=== PATIENT | female | born 1990 | race Caucasian/White ===

== ENCOUNTER 2017-03-05 04:19 | Emergency (ER) | payer OTHER ==
--- NOTE | ~2017-03-05 | EKG ---
PATIENT: ANA CROWELL UNIT #: [id number] Ventricular Rate: 86 BPM Atrial Rate: 86 BPM P-R Interval: 140 ms QRS Duration: 90 ms Q-T Interval: 374 ms QTC Calculation(Bezet): 447 ms P Adamant: 82 degrees Calculated R Adamant: 87 degrees Calculated T Adamant: 63 degrees Diagnosis Line: Normal sinus rhythm Diagnosis Line: Otherwise normal ECG Diagnosis Line: No previous ECGs available Diagnosis Line: Confirmed by SANDRA EVERETT MD ([id number]) on Diagnosis Line: 03/05/2017 3:58:59 PM INTERPRETING MD: JOÃO
--- NOTE | ~2017-03-05 | CT71 ---
[facility] A Service of [facility] RADIOLOGY TEXT RESULTS PATIENT: ANA CROWELL LOCATION: [facility] : [birth year] UNIT #: [id number] AGE: [address]: Nick Grace MD SEX: F ORDER DR: [id number] [facility]. [place], [place] [address] [id number] MR#: [id number] #: [id number] NAME: ANA CROWELL : 1990 SEX: F STUDY DATE/TIME: 03/05/2017 8:27 UNIT: TAMI ROOM: STUDY DESCRIPTION: CT Head Wo Contrast Attending Physician: Nick Grace M.D. Ordering Physician: Nick Grace M.D. Primary Care Physician: No Primary Care Physician MEDICAL IMAGING REPORT This report is preliminary unless electronic signature is present EXAM CT head without contrast, 03/05/2017 HISTORY A 26-year-old female with vision loss, hand numbness, facial numbness and weakness for 3 - 4 days. Cardiac size None. TECHNIQUE This CT exam was performed with one or more of the following radiation dose reduction techniques: automatic exposure control, adjustment of mA and/or kV according to patient size, and iterative reconstruction. Routine unenhanced axial images performed through the brain. FINDINGS No hemorrhage, acute infarction, mass lesion, or abnormal extraaxial fluid collection. No midline shift or focal mass effect. Ventricular system normal size configuration. No acute bony abnormality. There is mucosal thickening in the bilateral ethmoid air cells and sphenoid sinuses. Visualized mastoid air cells are clear. IMPRESSION 1. No acute intracranial abnormality. 2. Mucosal thickening bilateral ethmoid air cells and sphenoid sinuses Dictated by... Raffaele Eddy M.D. THIS IS AN ELECTRONICALLY VERIFIED REPORT [facility] A Service [facility] RADIOLOGY TEXT RESULTS PATIENT: ANA CROWELL LOCATION: [facility] : [birth year] UNIT #: [id number] AGE: [address]: Nick Grace MD SEX: F ORDER DR: Raffaele Eddy M.D. at 03/06/2017 8:42 AM DANIELLE/andre TD: 03/05/2017 20:49 JOB #: [id number] MEDICAL IMAGING REPORT Page 1 of 1 COPY
[~2017-03-05 04:19] MED LIST: AURALGAN EAR DR14 ML OT; CIPRO PO; CLINDAMYCIN HC300 MG PO; CORTISPORI10 ML OTIC AD; DICLOFENAC PO; ERY-TAB250 MG PO; FLEXERIL10 M1 PO; HCTZ; IBUPROFEN800 MG PO; KEFLEX500 M1 PO; MULTIPLE VITAMI1 T10 PO; NICOTINE TRANSD21 MG EXT; NO MEDICATIONS; PEN-VEE K PO; PREDNISONE1 MG PO; SYNTHROID; TRIAMCINOLONE AC1 GM EXT; TYLENOL #3 PO; VOLTAREN75 MG PO
[2017-03-05 07:39] LABS: BASOPHIL% 0.5 % (0-2.5); EOSINOPHIL# 0.1 X10e3 (0-0.7); EOSINOPHIL% 1.7 % (0.0-7.0); HEMATOCRIT 41.4 % (35.0-45.0); HEMOGLOBIN 13.6 gm/dL (12.0-16.0); LYMPHOCYTE# 1.6 X10e3 (1.0-3.5); LYMPHOCYTE% 19.3 % (17.0-45.0); MEAN CELL VOLUME 84.3 FL (83-96); MEAN CORPUSCULAR HEMOGLOBIN 27.8 PG (28-34); MEAN CORPUSCULAR HGB CONC 32.9 g/dL (30-36); MEAN PLATELET VOLUME 7.8 FL (6.5-11.5); MONOCYTE# 0.9 X10e3 (0-1.0); MONOCYTE% 10.8 % (3.0-12.0); NEUTROPHIL# 5.6 X10e3 (1.5-7.1); NEUTROPHIL% 67.7 % (40-75); PLATELET COUNT 221 X10e3 (140-420); RED BLOOD COUNT 4.91 X10e (3.90-5.30); RED CELL DISTRIBUTION WIDTH 12.8 % (11.0-15.5); WHITE BLOOD COUNT 8.2 X10e3 (4.0-10.5)
[2017-03-05 07:40] LABS: DIFF IND NO
[2017-03-05 08:38] LABS: ALBUMIN SERUM 3.8 g/dL (3.5-5.0); ALKALINE PHOSPHATASE 78 U/L (32-92); ALT (SGPT) 29 U/L (10-40); AST (SGOT) 29 U/L (10-42); BILIRUBIN, DIRECT 0.2 mg/dL (0.0-0.2); BILIRUBIN,INDIRECT 0.8 mg/dL (0.0-0.9); BLOOD UREA NITROGEN 9 mg/dL (9-23); BUN/CREATININE RATIO 11.25; CALCIUM SERUM 9.1 mg/dL (8.4-10.2); CARBON DIOXIDE 30 mmol/L (22-31); CHLORIDE 100 mmol/L (100-111); CREATININE SERUM 0.8 mg/dL (0.6-1.4); GLOM FILT RATE Estimated 102.6 mL/min (>60); GLUCOSE FASTING 80 mg/dL (70-110); POTASSIUM 3.5 mmol/L (3.5-5.1); PROTEIN TOTAL SERUM 7.6 g/dL (6.0-8.3); SODIUM 139 mmol/L (135-145)
[2017-03-05 08:39] LABS: ALCOHOL BLOOD <5 mg/dL (0)
[2017-03-05 08:42] LABS: POC - CKMB <1.0 ng/mL (0.0-7.9); POC - TROPONIN <0.05 ng/mL (<=0.05)
[2017-03-05 08:54] LABS: URINE APPEARANCE CLOUDY; URINE BLOOD NEG (NEG); URINE COLOR DK YELLOW; URINE GLUCOSE NEG (NEG); URINE KETONE TRACE (NEG); URINE LEUKOCYTE ESTERASE TRACE (NEG); URINE NITRATE NEG (NEG); URINE PROTEIN 1+ (NEG); URINE SPECIFIC GRAVITY 1.035 (1.003-1.035)
[2017-03-05 08:56] LABS: CULTURE INDICATED? YES; URINE BACTERIA AUWI NEG (NEGATIVE); URINE SQUAMOUS EPITHELIAL CELL OCC /[HPF]; UWBCS1 AUWI 25-50 (0-5)
[2017-03-05 09:05] LABS: URINE BILIRUBIN NEG (NEG); URINE MUCUS PRESENT
[2017-03-05 09:06] LABS: URINE SOURCE CATH
[2017-03-05 09:20] LABS: AMPHETAMINE POS (NEG); BARBITURATES NEG (NEG); BENZODIAZEPINES NEG (NEG); COCAINE NEG (NEG); MARIJUANA POS (NEG); OPIATES POS (NEG); TRICYCLIC ANTIDEPRESSANTS NEG (NEG); U METHADONE NEG (NEG)
== END 2017-03-05 11:40 | disposition home or self-care (01) ==
LOC: CED 04:19
PROVIDERS: Emergency Medicine
DX: N30.00 Acute cystitis without hematuria (principal); F19.10 Other psychoactive substance abuse, uncomplicated; I10 Essential (primary) hypertension; F17.200 Nicotine dependence, unspecified, uncomplicated; Z79.899 Other long term (current) drug therapy; Z91.018 Allergy to other foods; Z88.1 Allergy status to other antibiotic agents
CPT/HCPCS: 36415; 51701; 70450; 80048; 80076; 80307; 81003; 82140; 82553; 82947; 84484; 84703; 85025; 87086; 93005; 96372; 99284; G0480; J1170